=== PATIENT | female | born 1980 | race Asian ===

== ENCOUNTER 2023-11-20 01:47 | Emergency (ER) | payer OTHER ==
[2023-11-20 02:05] VITALS: O2SAT 100
[2023-11-20] MEDS: SODIUM CHLORIDE 0.9% 1,000 ML IV STA (02:47)
[2023-11-20] MEDS: ACETAMINOPHEN 325 MG TABLET PO STA (02:47)
[2023-11-20 02:57] LABS: BASOPHILS % (AUTO) 0.4 %; EOSINOPHILS # (AUTO) 0.2 10^3/uL (0.0-0.7); EOSINOPHILS % (AUTO) 2.8 %; HCT - HEMATOCRIT 40.6 % (37.0-47.0); HGB - HEMOGLOBIN 13.1 g/dL (12.0-16.0); LYMPHOCYTES # (AUTO) 1.7 10^3/uL (1.5-3.5); LYMPHOCYTES % (AUTO) 29.3 %; MEAN CORPUSCULAR HEMOGLOBIN 29.6 pg (27.0-31.0); MEAN CORPUSCULAR HGB CONC 32.3 g/dL (32.0-36.0); MEAN CORPUSCULAR VOLUME 91.6 fL (81.0-99.0); MEAN PLATELET VOLUME 9.2 fL (7.9-10.8); MONOCYTES # (AUTO) 0.5 10^3/uL (0.0-1.0); MONOCYTES % (AUTO) 8.7 %; NEUTROPHILS # (AUTO) 3.3 10^3/uL (1.5-6.6); NEUTROPHILS % (AUTO) 58.6 %; PLT - PLATELET COUNT 339 10^3/uL (130-450); RED BLOOD COUNT 4.43 10^6/uL (4.20-5.40); RED CELL DISTRIBUTION WIDTH 12.1 % (12.0-15.0); WHITE BLOOD COUNT 5.7 x10^3/uL (4.8-10.8)
--- NOTE | 2023-11-20 03:02 | ED Physician Documentation ---
PD HPI CHEST PAIN - Stated complaint Stated Complaint: CHEST PX/GIBBONS - Chief complaint Chief Complaint: Cardiac - History obtained from History obtained from: Patient - Additional information Additional information: Patient is a 43-year-old female with a history of GERD presenting for evaluations of episodes of palpitations and feeling tightness across her chest for the last several nights. Patient states the symptoms occur primarily at night when she is trying to sleep. She states that the chest pain started yesterday morning (Sunday). Tonight she was having trouble going to sleep and again feeling palpitations and tightness across the chest. She states she was stressed as she had just caught her dogs toenails and caused some bleeding and she was also worried because she is doing for an exam. No history of hypertension, diabetes, hyperlipidemia, family history of early CAD. No history of PE or DVT, recent travel or immobilization. She was on omeprazole for GERD but was recently taken off of it by her PCP. Review of Systems Constitutional: denies: Fever Cardiac: reports: Chest pain / pressure, Palpitations Respiratory: denies: Dyspnea GI: denies: Abdominal Pain, Vomiting : denies: Dysuria Neurologic: denies: Syncope PD PAST MEDICAL HISTORY - Past Medical History Past Medical History: No - Past Surgical History Past Surgical History: No - Allergies Allergies/Adverse Reactions: Allergies Allergy/AdvReac Type Severity Reaction Status Date / Time famotidine AdvReac Unknown Verified 11/20/23 01:57 - Social History Does the pt smoke?: No Smoking Status: Never smoker Does the pt drink ETOH?: No Does the pt have substance abuse?: No - Immunizations Immunizations are current?: Yes - POLST Patient has POLST: No PD ED PE NORMAL - General General: Alert and oriented X 3, No acute distress, Well developed/nourished - HEENT HEENT: Atraumatic - Neck Neck: Supple, no meningeal sign - Cardiac Cardiac: RRR, Strong equal pulses - Respiratory Respiratory: No respiratory distress, Clear bilaterally - Abdomen Abdomen: Normal bowel sounds, Soft, Non tender, Non distended - Derm Derm: Warm and dry - Neuro Neuro: Normal speech Results - Vitals Vitals: Vital Signs - 24 hr 11/20/23 11/20/23 01:58 03:41 Temperature 36.6 C Heart Rate 65 82 Respiratory 13 16 Rate Blood Pressure 140/100 H 138/88 H O2 Saturation 100 Oxygen O2 Source Room air - EKG (time done) 2:02 EKG releavant findings:: EKG personally interpreted by author of this note. Relevant findings are: - Labs Labs: Laboratory Tests 11/20/23 11/20/23 02:51 02:51 WBC 5.7 RBC 4.43 Hgb 13.1 Hct 40.6 MCV 91.6 MCH 29.6 MCHC 32.3 RDW 12.1 Plt Count 339 MPV 9.2 Neut # (Auto) 3.3 Lymph # (Auto) 1.7 [place] # (Auto) 0.5 Eos # (Auto) 0.2 Baso # (Auto) 0.0 Absolute Nucleated RBC 0.00 Nucleated RBC % 0.0 Sodium 139 Potassium 3.6 Chloride 104 Carbon Dioxide 27 Anion Gap 8.0 BUN 15 Creatinine 0.8 Estimated GFR (MDRD) 79 L Glucose 105 H Calcium 10.0 Total Bilirubin 0.4 AST 22 ALT 25 Alkaline Phosphatase 56 Troponin I High Sens 3.1 Total Protein 8.0 Albumin 4.7 Globulin 3.3 Albumin/Globulin Ratio 1.4 Lipase 30 TSH 3.25 PD Medical Decision Making - ED course Complexity details: reviewed results, d/w patient ED course: Patient is a 43-year-old female presenting for evaluation of chest pain and palpitations are currently in primary at night for the past several days. EKG reviewed and nonischemic with no arrhythmia. CBC, chemistry, TSH,troponin without significant findings. Low risk for ACS. History does not suggest unstable angina.PERC negative. Chest x-ray which I reviewed shows normal heart size. Patient does have a history of GERD and did ask for a dose of Maalox which she states has helped her in the past as she is off of omeprazole. Patient counseled on importance of close follow-up with PCP and advised on concerning symptoms to return for. Departure - Departure Disposition: 01 Home, Self Care Clinical Impression: Chest pain, Palpitations Condition: Stable Instructions: ED Chest Pain Atypical Unkn Cause, ED Palpitations Comments: Your testing today does not show any significant abnormalities but you may need further testing to determine the cause of your chest pain as well as the palpitations. Please have close follow-up with your primary care doctor. Return to the ER if you develop any worsening symptoms. Forms: PCP List Discharge Date/Time: 11/20/23 03:42
[2023-11-20 03:16] LABS: ALBUMIN 4.7 g/dL (3.2-5.5); ALBUMIN/GLOBULIN RATIO 1.4 (1.0-2.2); BILIRUBIN,TOTAL 0.4 mg/dL (0.2-1.0); CREATININE 0.8 mg/dL (0.6-1.3); POTASSIUM 3.6 mmol/L (3.5-4.5)
[2023-11-20 03:18] LABS: TROPONIN I HIGH SENSITIVITY 3.1 ng/L (2.3-14.8)
[2023-11-20 03:28] LABS: THYROID STIMULATING HORMONE 3.25 uIU/mL (0.34-5.60)
[2023-11-20] MEDS: MAG HYDROX/AL HYDROX/SIMETH 30 ML UDC PO STA (03:35)
[2023-11-20 03:49] VITALS: BP 138/88
--- NOTE | 2023-11-20 15:57 | XRAY Report ---
PROCEDURE: Chest 1V INDICATIONS: CP TECHNIQUE: One view of the chest was acquired. COMPARISON: None. FINDINGS: Surgical changes and devices: None. Lungs and pleura: No pleural effusions or pneumothorax. Lungs are clear. Mediastinum: Mediastinal contours appear normal. Heart size is normal. Bones and chest wall: No suspicious bony lesions. Overlying soft tissues appear unremarkable. IMPRESSION: No acute cardiopulmonary process. The above findings are concordant with preliminary report. Reviewed by: Dominique Arreguin MD on 11/20/2023 3:56 PM PDT Approved by: Dominique Arreguin MD on 11/20/2023 3:56 PM PDT Station ID: [id number]
== END 2023-11-20 03:42 | disposition home or self-care (01) ==
LOC: ED 01:47
DX: R07.9 Chest pain, unspecified (principal); R00.2 Palpitations; K21.9 Gastro-esophageal reflux disease without esophagitis
CPT/HCPCS: 36415; 71045; 80053; 83690; 84443; 84484; 85025; 93005; 99283; 99284; A9270